=== PATIENT | male | born 1945 | race Caucasian/White ===

== ENCOUNTER 2016-09-08 20:03 | Emergency (ER) | payer OTHER ==
[2016-09-08 20:37] VITALS: BP 144/80; PULSE 97; TEMP 98.4; BMI 26.6
--- NOTE | 2016-09-08 21:13 | PDOC ---
History of Present Illness - General Chief Complaint: Ear Problem Stated Complaint: LT EAR PROBLEM Time Seen by Provider: 09/08/16 20:52 History Source: Patient Exam Limitations: No Limitations - History of Present Illness Initial Comments: 09/08/16 21:11 Chief complaint: Ear and throat pain Patient is a 71-year-old male who had seen his doctor earlier this week for a checkup and was told he had wax in his left ear. He's been using Debrox for 4 days and feels that his hearing is getting worse. Patient also complaining of throat pain. No fever, no difficulty speaking or swallowing GENERAL/CONSTITUTIONAL: No fever, weakness. dizziness HEAD, EYES, EARS, NOSE AND THROAT: No change in vision. No ear pain or discharge. Decreased hearing left ear, +sore throat. CARDIOVASCULAR: No chest pain RESPIRATORY: No shortness of breath or cough GASTROINTESTINAL: No pain, nausea, vomiting, diarrhea or constipation GENITOURINARY: No dysuria MUSCULOSKELETAL: No neck or back pain SKIN: No rash NEUROLOGIC: No headache, vertigo, loss of consciousness, or loss of sensation. GENERAL: The patient is awake, alert, and fully oriented, in no acute distress. HEAD: Normal with no signs of trauma. EYES: Pupils equal, round and reactive to light, sclera anicteric, conjunctiva clear. ENT: Right ear clear, left ear with cerumen, no erythema, difficult to see TM, no anal on exam, pharynx: no erythema, no exudate, uvula midline NECK: supple CHEST: clear, nontender, rr ABD: soft, nontender EXTREMITIES: Normal range of motion, no edema. NEUROLOGICAL: Normal speech, normal gait. SKIN: Warm, Dry Past History - Past Medical History Allergies/Adverse Reactions: Allergies Allergy/AdvReac Type Severity Reaction Status Date / Time No Known Allergies Allergy Verified 09/08/16 20:28 Home Medications: Ambulatory Orders Cholecalciferol (Vitamin D3) [Vitamin D3] 2,000 unit PO DAILY 10/30/12 Multivit-Min/FA/Lycopene/Lut [Centrum Silver Tablet] 1 each PO DAILY 10/30/12 Aspirin/Calcium Carbonate/Mag [Aspirin Buffered 325 mg Tab] 650 mg PO ONCE PRN 06/09/15 Anemia: No Asthma: No Cancer: No Cardiac Disorders: No CVA: No COPD: No CHF: No Dementia: No Diabetes: No GI Disorders: No Disorders: No HTN: No Hypercholesterolemia: Yes Liver Disease: No Seizures: No Thyroid Disease: No - Surgical History Abdominal Surgery: No Appendectomy: Yes Cardiac Surgery: No Cholecystectomy: No Lung Surgery: No Neurologic Surgery: No Orthopedic Surgery: No - Psycho/Social/Smoking Cessation Hx Suicidal Ideation: No Smoking Status: No Smoking History: Never smoked Number of Cigarettes Smoked Daily: 0 Hx Alcohol Use: Yes (DAILY WINE) Drug/Substance Use Hx: No Substance Use Type: None Hx Substance Use Treatment: No *Physical Exam - Vital Signs Last Vital Signs Temp Pulse Resp BP Pulse Ox 98.4 F 97 H 16 144/80 09/08/16 20:33 09/08/16 20:33 09/08/16 20:33 09/08/16 20:33 Medical Decision Making - Medical Decision Making 09/08/16 22:12 Negative strep *DC/Admit/Observation/Transfer Diagnosis at time of Disposition: Excessive cerumen in left ear canal, Throat pain - Discharge Dispostion Disposition: HOME Condition at time of disposition: Stable Admit: No - Referrals Referrals: Leif Zelaya MD [Primary Care Provider] - Marvin Cadet MD [Staff Physician] - - Patient Instructions Printed Discharge Instructions: DI for Cerumen Impaction Additional Instructions: do Not put anything more in your ear See the ENT as soon as possible Return to the ER if fever or feeling sicker
== END 2016-09-08 22:15 | disposition home or self-care (01) ==
LOC: JERFT 20:03
DX: H61.22 Impacted cerumen, left ear (principal); J02.9 Acute pharyngitis, unspecified; E78.00 Pure hypercholesterolemia, unspecified
CPT/HCPCS: 87070; 87430; 99281-25

== ENCOUNTER 2017-08-27 17:38 | Emergency (ER) | payer OTHER ==
[2017-08-27 18:03] VITALS: BP 128/98; PULSE 126; BMI 26.1
--- NOTE | 2017-08-27 18:04 | PDOC ---
Rapid Medical Evaluation Time Seen by Provider: 08/27/17 18:00 Medical Evaluation: Allergies Allergy/AdvReac Type Severity Reaction Status Date / Time No Known Allergies Allergy Verified 08/27/17 17:59 08/27/17 18:00 The patient presents with a chief complaint of: Flu like symptoms since Sunday. Also complaining of chest pain (possibly from coughing?) I have performed a brief in-person evaluation of this patient; Pertinent physical exam findings: ambulatory, in no respiratory distress. HR 126 , RRR, CTAB. Chest pain is non-reproducible I have ordered the following: CBC, CMP, Trop, PT/INR, EKG. CXR The patient will proceed to the ED for further evaluation.
[2017-08-27 19:09] LABS: BASO % 0.3 % (0-2.0); EOS % 0.4 % (0-4.5); HEMATOCRIT 46.9 % (35.4-49); HEMOGLOBIN 15.8 GM/dL (11.7-16.9); LYMPH % 14.2 % (8-40); MCH 30.1 pg (25.7-33.7); MCHC 33.6 g/dl (32.0-35.9); MEAN CELL VOLUME 89.7 fl (80-96); MEAN PLT VOLUME 8.6 fl (7.5-11.1); MONO % 13.2 % (3.8-10.2); NEUT % 71.9 % (42.8-82.8); PLATELET COUNT 169 K/MM3 (134-434); RBC 5.23 M/mm3 (4.00-5.60); RDW 12.4 % (11.9-15.9); WHITE BLOOD COUNT 7.6 K/mm3 (4.0-10.0)
[2017-08-27 19:24] LABS: INR 1.18 (0.82-1.09); PROTHROMBIN TIME (PATIENT) 13.3 SEC (9.98-11.88)
[2017-08-27 20:00] LABS: ALBUMIN 3.7 g/dl (3.4-5.0); ANION GAP 9 (8-16); BILIRUBIN,TOTAL 0.5 mg/dL (0.2-1.0); BLOOD UREA NITROGEN 6 mg/dL (7-18); CALCIUM 7.9 mg/dL (8.5-10.1); CHLORIDE 104 mmol/L (98-107); CO2 25 mmol/L (21-32); GLUCOSE,RANDOM 115 mg/dL (74-106); POTASSIUM 3.8 mmol/L (3.5-5.1); SGOT/AST 21 U/L (15-37); SGPT/ALT 21 U/L (12-78); SODIUM 138 mmol/L (136-145)
[2017-08-27 20:01] LABS: ALK PHOS 87 U/L (45-117); TOT PROT 6.7 g/dl (6.4-8.2)
[2017-08-27 20:36] VITALS: TEMP 100.1
[2017-08-27] MEDS ORDERED: ACETAMINOPHEN 325 MG TABLET (FP) PO ONE (20:37)
[2017-08-27] MEDS ORDERED: OSELTAMIVIR PHOSPHATE 75 MG CAPSULE PO ONE (20:37)
--- NOTE | 2017-08-27 20:37 | PDOC ---
History of Present Illness <JonnyKarina Padmini - Last Filed: 08/27/17 20:38> - General History Source: Patient Exam Limitations: No Limitations - History of Present Illness Initial Comments: 08/27/17 20:43 The patient is a 72 year old male with significant past medical history of hyperlipidemia who presents to the ED complaining of approximately 2 days of subjective fever, chills, malaise, diffuse myalgias, nonproductive cough, and nasal congestion. He also reports mild chest pain when he coughs, no substernal chest pain at rest. No vomiting or diarrhea. <Lakisha Dejesus - Last Filed: 08/27/17 21:17> - General Chief Complaint: Chest Pain Stated Complaint: COLD SYMPTOMS Time Seen by Provider: 08/27/17 18:00 Past History - Past Medical History Anemia: No Asthma: No Cancer: No Cardiac Disorders: No CVA: No COPD: No CHF: No Dementia: No Diabetes: No GI Disorders: No Disorders: No HTN: No Hypercholesterolemia: Yes Liver Disease: No Seizures: No Thyroid Disease: No - Surgical History Abdominal Surgery: Yes (HERNIA) Appendectomy: Yes Cardiac Surgery: No Cholecystectomy: No Lung Surgery: No Neurologic Surgery: No Orthopedic Surgery: No - Suicide/Smoking/Psychosocial Hx Smoking Status: No Smoking History: Never smoked Number of Cigarettes Smoked Daily: 0 Information on smoking cessation initiated: No Hx Alcohol Use: Yes (DAILY WINE) Drug/Substance Use Hx: No Substance Use Type: None Hx Substance Use Treatment: No <JonnySharathgloria Washington - Last Filed: 08/27/17 20:38> <Lakisha Dejesus - Last Filed: 08/27/17 21:17> - Past Medical History Allergies/Adverse Reactions: Allergies Allergy/AdvReac Type Severity Reaction Status Date / Time No Known Allergies Allergy Verified 08/27/17 17:59 Home Medications: Ambulatory Orders Multivit-Min/FA/Lycopene/Lut [Centrum Silver Tablet] 1 each PO DAILY 10/30/12 Oseltamivir Phosphate [Tamiflu -] 75 mg PO BID #10 capsule 08/27/17 Review of Systems - Review of Systems Able to Perform ROS?: Yes Comments:: 08/27/17 20:55 GENERAL/CONSTITUTIONAL: +Subjective fever, chills, malaise. HEAD, EYES, EARS, NOSE AND THROAT: +Rhinorrhea. No change in vision. No ear pain or discharge. No sore throat. CARDIOVASCULAR: No shortness of breath. RESPIRATORY: +Cough with pleuritic chest pain. No wheezing, or hemoptysis. GASTROINTESTINAL: No vomiting, diarrhea or constipation. GENITOURINARY: No dysuria, frequency, or change in urination. MUSCULOSKELETAL: +Diffuse myalgias. No neck or back pain. SKIN: No rash NEUROLOGIC: No headache, vertigo, loss of consciousness, or change in strength/ sensation. ENDOCRINE: No increased thirst. No abnormal weight change. HEMATOLOGIC/LYMPHATIC: No anemia, easy bleeding, or history of blood clots. ALLERGIC/IMMUNOLOGIC: No hives or skin allergy. <Lakisha Dejesus - Last Filed: 08/27/17 21:17> *Physical Exam - Vital Signs Last Vital Signs Temp Pulse Resp BP Pulse Ox 100.1 F H 126 H 18 128/98 100 08/27/17 20:36 08/27/17 18:00 08/27/17 18:00 08/27/17 18:00 08/27/17 18:00 <Karina Fuller - Last Filed: 08/27/17 20:38> - Vital Signs Last Vital Signs Temp Pulse Resp BP Pulse Ox 100.1 F H 126 H 18 128/98 100 08/27/17 20:36 08/27/17 18:00 08/27/17 18:00 08/27/17 18:00 08/27/17 18:00 - Physical Exam Comments: 08/27/17 20:58 GENERAL: Awake, alert, and fully oriented, in no acute distress HEAD: No signs of trauma EYES: PERRLA, EOMI, sclera anicteric, conjunctiva clear ENT: Auricles normal inspection, hearing grossly normal, nares patent, oropharynx clear without exudates. Moist mucosa NECK: Normal ROM, supple, no lymphadenopathy, JVD, or masses LUNGS: Breath sounds equal, clear to auscultation bilaterally. No wheezes, and no crackles HEART: Mildly tachycardic, regular rhythm, normal S1 and S2, no murmurs, rubs or gallops ABDOMEN: Soft, nontender, normoactive bowel sounds. No guarding, no rebound. No masses EXTREMITIES: Normal range of motion, no edema. No clubbing or cyanosis. No cords, erythema, or tenderness NEUROLOGICAL: Cranial nerves II through XII grossly intact. Normal speech, normal gait SKIN: Warm, Dry, normal turgor, no rashes or lesions noted. <Lakisha Dejesus - Last Filed: 08/27/17 21:17> Heart Score/ECG Review #1 08/27/17 21:02 EKG obtained 17:55. Sinus tachy at 110 with PVCs, possible left atrial enlargement. <Lakisha Dejesus - Last Filed: 08/27/17 21:17> ED Treatment Course - LABORATORY CBC & Chemistry Diagram: 08/27/17 19:00 08/27/17 19:00 - ADDITIONAL ORDERS Additional order review: Laboratory Results 08/27/17 08/27/17 08/27/17 19:00 19:00 19:00 PT with INR 13.30 H INR 1.18 H Sodium 138 Potassium 3.8 Chloride 104 Carbon Dioxide 25 Anion Gap 9 BUN 6 L D Creatinine 1.0 Creat Clearance w eGFR > 60 Random Glucose 115 H D Calcium 7.9 L Total Bilirubin 0.5 D AST 21 ALT 21 D Alkaline Phosphatase 87 Creatine Kinase 66 Troponin I 0.02 Total Protein 6.7 Albumin 3.7 08/27/17 19:16 Influenza Types A,B Antigen (NELIDA) - Final Nasopharyngeal Swab - Final 08/27/17 19:00 RBC 5.23 MCV 89.7 MCHC 33.6 RDW 12.4 MPV 8.6 Neutrophils % 71.9 D Lymphocytes % 14.2 D Monocytes % 13.2 H Eosinophils % 0.4 D Basophils % 0.3 <Karina Fuller - Last Filed: 08/27/17 20:38> - LABORATORY CBC & Chemistry Diagram: 08/27/17 19:00 08/27/17 19:00 - ADDITIONAL ORDERS Additional order review: Laboratory Results 08/27/17 08/27/17 08/27/17 19:00 19:00 19:00 PT with INR 13.30 H INR 1.18 H Sodium 138 Potassium 3.8 Chloride 104 Carbon Dioxide 25 Anion Gap 9 BUN 6 L D Creatinine 1.0 Creat Clearance w eGFR > 60 Random Glucose 115 H D Calcium 7.9 L Total Bilirubin 0.5 D AST 21 ALT 21 D Alkaline Phosphatase 87 Creatine Kinase 66 Troponin I 0.02 Total Protein 6.7 Albumin 3.7 08/27/17 19:16 Influenza Types A,B Antigen (NELIDA) - Final Nasopharyngeal Swab - Final 08/27/17 19:00 RBC 5.23 MCV 89.7 MCHC 33.6 RDW 12.4 MPV 8.6 Neutrophils % 71.9 D Lymphocytes % 14.2 D Monocytes % 13.2 H Eosinophils % 0.4 D Basophils % 0.3 <Lakisha Dejesus - Last Filed: 08/27/17 21:17> *DC/Admit/Observation/Transfer <Karina Fuller - Last Filed: 08/27/17 20:38> - Attestations Scribe Attestion: 08/27/17 20:59 Documentation prepared by Lakisha Dejesus, acting as medical social consultant for Karina Fuller MD. <Lakisha Dejesus - Last Filed: 08/27/17 21:17> Diagnosis at time of Disposition: Influenza - Discharge Dispostion Disposition: HOME Condition at time of disposition: Stable - Prescriptions Prescriptions: Oseltamivir Phosphate [Tamiflu -] 75 mg PO BID #10 capsule - Referrals Referrals: Leif Zelaya MD [Primary Care Provider] - - Patient Instructions Printed Discharge Instructions: DI for Influenza -- Adult Additional Instructions: please take tylenol or motrin for pain and fever rest stay hydrated return if you develop any shortness of breath - Post Discharge Activity
[2017-08-27] MEDS ORDERED: OSELTAMIVIR PHOSPHATE 75 MG CAPSULE ONE (20:39)
[2017-08-27] MEDS ORDERED: ACETAMINOPHEN 325 MG TABLET (FP) ONE (20:39)
--- NOTE | 2017-08-29 11:28 | EKG ---
Test Reason : Blood Pressure : / mmHG Vent. Rate : 110 BPM Atrial Rate : 110 BPM P-R Int : 188 ms QRS Dur : 090 ms QT Int : 320 ms P-R-T Axes : 060 269 025 degrees QTc Int : 433 ms SINUS TACHYCARDIA WITH PREMATURE ATRIAL COMPLEXES WITH ABERRANT CONDUCTION POSSIBLE LEFT ATRIAL ENLARGEMENT POSSIBLE LATERAL INFARCT , AGE UNDETERMINED INFERIOR-POSTERIOR INFARCT , AGE UNDETERMINED ABNORMAL ECG WHEN COMPARED WITH ECG OF 10-JUN-2015 00:15, SIGNIFICANT CHANGES HAVE OCCURRED Confirmed by KRISS TERRELL MD ([id number]) on 08/29/2017 11:28:30 AM Referred By: Confirmed By:KRISS TERRELL MD
== END 2017-08-27 20:51 | disposition home or self-care (01) ==
LOC: JER 17:38
DX: J10.1 Influenza due to other identified influenza virus with other respiratory manifestations (principal); E78.00 Pure hypercholesterolemia, unspecified
CPT/HCPCS: 36415; 71046-TC-FY; 80053; 82550; 84484; 85025; 85610; 87804; 93005; 93010; 99283-25

== ENCOUNTER 2023-10-16 20:46 | Observation (INO) | payer OTHER ==
[2023-10-16 20:56] VITALS: BMI 24.6
[2023-10-16] MEDS ORDERED: ACETAMINOPHEN INJECTION 100 ML IVPB ONE (21:20)
[2023-10-16 21:25] LABS: BASO % 0.8 % (0-2.0); EOS % 1.6 % (0-4.5); HEMATOCRIT 42.9 % (35.4-49); HEMOGLOBIN 14.5 GM/dL (11.7-16.9); LYMPH % 24.7 % (8-40); MCH 28.8 pg (25.7-33.7); MCHC 33.8 g/dl (32.0-35.9); MEAN CELL VOLUME 85.2 fl (80-96); MEAN PLT VOLUME 7.7 fl (7.5-11.1); NEUT % 62.9 % (42.8-82.8); PLATELET COUNT 228 10^3/uL (134-434); RBC 5.04 M/mm3 (4.00-5.60); RDW 14.5 % (11.9-15.9); WHITE BLOOD COUNT 6.1 K/mm3 (4.0-10.0)
[2023-10-16] MEDS: ACETAMINOPHEN 1000 MG/100 ML BAG IVPB ONE (21:25)
[2023-10-16 21:32] LABS: INR 1.18 (0.83-1.09); PROTHROMBIN TIME (PATIENT) 13.7 SEC (9.7-13.0)
[2023-10-16 21:34] LABS: ACTIVATED PTT 31.1 SECONDS (25.2-36.5)
[2023-10-16 21:52] LABS: POTASSIUM 3.8 mmol/L (3.5-5.1)
[2023-10-16 21:54] LABS: ALBUMIN 3.9 g/dl (3.4-5.0); CALCIUM 9.2 mg/dL (8.5-10.1)
[2023-10-16 21:55] LABS: BLOOD UREA NITROGEN 12.4 mg/dL (7-18)
[2023-10-16 21:59] LABS: BILIRUBIN,TOTAL 0.6 mg/dL (0.2-1); TOT PROT 7.1 g/dl (6.4-8.2)
[2023-10-16] MEDS ORDERED: ASPIRIN 81 MG CHEWABLE TABLETS ONE (22:58)
[2023-10-16] MEDS: ASPIRIN 81 MG CHEWABLE TABLETS PO ONE (23:00)
[2023-10-17 07:26] LABS: EOS % 4.3 % (0-4.5); HEMATOCRIT 42.7 % (35.4-49); HEMOGLOBIN 14.2 GM/dL (11.7-16.9); LYMPH % 37.9 % (8-40); MCH 28.3 pg (25.7-33.7); MCHC 33.3 g/dl (32.0-35.9); MEAN CELL VOLUME 85.2 fl (80-96); MEAN PLT VOLUME 7.8 fl (7.5-11.1); MONO % 10.2 % (3.8-10.2); NEUT % 46.6 % (42.8-82.8); PLATELET COUNT 212 10^3/uL (134-434); RBC 5.02 M/mm3 (4.00-5.60); RDW 14.6 % (11.9-15.9); WHITE BLOOD COUNT 5.4 K/mm3 (4.0-10.0)
[2023-10-17] MEDS: ASPIRIN 81 MG CHEWABLE TABLETS PO SCH (09:31)
[2023-10-17 11:53] LABS: BLOOD UREA NITROGEN 10.4 mg/dL (7-18); CALCIUM 9.4 mg/dL (8.5-10.1); CREATININE 0.9 mg/dL (0.55-1.3); POTASSIUM 3.7 mmol/L (3.5-5.1)
[2023-10-18] MEDS ORDERED: REGADENOSON 0.4 MG/5 ML PRE-FILLED SYRINGE IVPUSH ONE (09:29)
[2023-10-18 11:01] VITALS: PULSE 76
[2023-10-18] MEDS: REGADENOSON 0.4 MG/5 ML PRE-FILLED SYRINGE IVPUSH ONE (11:10)
[2023-10-18 15:48] VITALS: BP 123/61; RESP 18; TEMP 98.1
== END 2023-10-18 17:48 | disposition home or self-care (01) ==
LOC: JER 20:46 → JERBED 22:24 → J4W 10-17 01:56
PROVIDERS: ADMIT Internal Medicine; ATTEND Family Medicine
PROC: 3E033NZ Introduction of Analgesics, Hypnotics, Sedatives into Peripheral Vein, Percutaneous Approach (ICD-10-PCS; principal; 2023-10-16)
PROC: 3E033GC Introduction of Other Therapeutic Substance into Peripheral Vein, Percutaneous Approach (ICD-10-PCS; 2023-10-16)
DX: I50.30 Unspecified diastolic (congestive) heart failure (principal); I11.0 Hypertensive heart disease with heart failure; R07.9 Chest pain, unspecified; G47.30 Sleep apnea, unspecified; Z90.49 Acquired absence of other specified parts of digestive tract; Z87.738 Personal history of other specified (corrected) congenital malformations of digestive system
CPT/HCPCS: 36415; 71045-TC-FY; 78452-TC; 80048; 80053; 84484; 85025; 85610; 85730; 93005; 93010; 93017; 93306-TC; 94660; 96374; 96375; 99285-25; A9502; G0378; J0131; J2785

== ENCOUNTER 2024-03-25 12:24 | Observation (INO) | payer OTHER ==
[2024-03-25 14:05] LABS: HEMATOCRIT 46.1 % (35.4-49); HEMOGLOBIN 15.6 GM/dL (11.7-16.9); MCH 28.3 pg (25.7-33.7); MCHC 33.8 g/dl (32.0-35.9); MEAN CELL VOLUME 83.9 fl (80-96); MEAN PLT VOLUME 7.5 fl (7.5-11.1); PLATELET COUNT 226 10^3/uL (134-434); RDW 15.2 % (11.9-15.9); WHITE BLOOD COUNT 6.2 K/mm3 (4.0-10.0)
[2024-03-25 14:30] LABS: POTASSIUM 4.2 mmol/L (3.5-5.1)
[2024-03-25 14:32] LABS: CALCIUM 9.9 mg/dL (8.5-10.1)
[2024-03-25 14:33] LABS: ALBUMIN 4.2 g/dl (3.4-5.0); BLOOD UREA NITROGEN 11.9 mg/dL (7-18)
[2024-03-25 14:38] LABS: BILIRUBIN,TOTAL 0.6 mg/dL (0.2-1); TOT PROT 7.6 g/dl (6.4-8.2)
[2024-03-25 15:34] LABS: HIV INTERPRETATION NEGATIVE (NEGATIVE)
[2024-03-25] MEDS ORDERED: DOCUSATE SODIUM 100 MG CAPSULE (FP) PO PRN (20:52)
[2024-03-25] MEDS ORDERED: ACETAMINOPHEN 325 MG TABLET (FP) PO PRN (20:52)
[2024-03-26 01:34] LABS: MAGNESIUM 2.1 mg/dL (1.8-2.4)
[2024-03-26 01:38] LABS: PHOSPHOROUS 3.4 mg/dL (2.5-4.9)
[2024-03-26 08:44] LABS: BASO % 0.9 % (0-2.0); EOS % 4.9 % (0-4.5); HEMATOCRIT 46.4 % (35.4-49); HEMOGLOBIN 15.8 GM/dL (11.7-16.9); LYMPH % 25.3 % (8-40); MCH 28.8 pg (25.7-33.7); MCHC 34.1 g/dl (32.0-35.9); MEAN CELL VOLUME 84.3 fl (80-96); MEAN PLT VOLUME 7.8 fl (7.5-11.1); MONO % 8.7 % (3.8-10.2); NEUT % 60.2 % (42.8-82.8); PLATELET COUNT 185 10^3/uL (134-434); RDW 15.5 % (11.9-15.9)
[2024-03-26 09:01] LABS: POTASSIUM 4.1 mmol/L (3.5-5.1)
[2024-03-26 09:03] LABS: BLOOD UREA NITROGEN 12.3 mg/dL (7-18); CALCIUM 9.5 mg/dL (8.5-10.1)
[2024-03-26 16:50] VITALS: BMI 25.3
[2024-03-26] MEDS: ATORVASTATIN CA 40 MG TABLET (FP) PO SCH (22:13)
[2024-03-27 03:34] VITALS: RESP 18
[2024-03-27 06:35] VITALS: BP 120/80; PULSE 70; TEMP 97.7
== END 2024-03-27 12:56 | disposition home or self-care (01) ==
LOC: JER 12:24 → JERBED 17:52 → J4W 03-26 16:00
PROVIDERS: ADMIT Internal Medicine; ATTEND Family Medicine
DX: R07.89 Other chest pain (principal); G47.30 Sleep apnea, unspecified; E78.5 Hyperlipidemia, unspecified; Z99.81 Dependence on supplemental oxygen; Z90.49 Acquired absence of other specified parts of digestive tract; Z87.738 Personal history of other specified (corrected) congenital malformations of digestive system
CPT/HCPCS: 36415; 71046-TC-FY; 80048; 80053; 83735; 84100; 84484; 85025; 85027; 86803; 87389; 93005; 93010; 93306-TC; 99285-25; G0378